=== PATIENT | female | born 1955 | race Caucasian/White ===

== ENCOUNTER 2019-01-01 20:54 | Emergency (ER) | payer OTHER ==
[2019-01-01] MEDS ORDERED: traMADol HCl 50 MG TAB ONE (21:14)
[2019-01-01 21:19] LABS: Bilirubin Negative (Negative); Blood, Urine Trace (Negative); Clarity Clear (Clear); Glucose, Urine (Dipstick) Negative (Negative); Leukocyte Negative (Negative); Nitrite Negative (Negative); Protein, Urine (Dipstick) Negative (Neg-Trace); Urobilinogen 0.2 mg/dL (Less than 2)
[2019-01-01 21:26] LABS: Bacteria/HPF Rare-Few HPF (None Seen); Squamous Epithelial 0-3 HPF (0-3); WBC/HPF 0-3 HPF (0-3)
[2019-01-01 21:43] LABS: #Basophils 0.1 thou/uL (0.0-0.2); #Eosinphils 0.1 thou/uL (0.0-0.7); #Lymphocytes 1.3 thou/uL (1.20-3.40); #Monocytes 0.5 thou/uL (0.11-0.59); %Basophils 1.1 % (0.0-1.0); %Eosinophils 0.9 % (0.0-10.0); %Lymphocytes 19.3 % (21.0-51.0); %Neutrophils 71.8 % (42.0-75.0); Hemoglobin 13.9 g/dL (12.0-16.0); Mean Corpuscular HGB CONC 34.4 g/dL (32.0-36.0); Mean Corpuscular Hemoglobin 30.2 pg (27.0-31.0); Mean Corpuscular Volume 87.7 fL (78.0-98.0); Mean Platelet Volume 5.9 fL (7.4-10.4); Platelet Count 200 thou/uL (130-400); RBC Distribution Width 10.7 % (11.5-14.5); Red Blood Cell (RBC) Count 4.62 mill/uL (4.20-5.40); White Blood Cell (WBC) Count 6.9 thou/uL (4.8-10.8)
[2019-01-01] MEDS ORDERED: Ketorolac Tromethamine 30 MG/ML VIAL ONE (21:44)
[2019-01-01 21:57] LABS: Anion Gap 14 mmol/L (10-20); BUN (Urea Nitrogen) 14 mg/dL (9.8-20.1); Calc. Creatinine Clearance 0 mL/min (70-130); Calcium 9.7 mg/dL (7.8-10.44); Carbon Dioxide 24 mmol/L (23-31); Chloride 108 mmol/L (98-107); Estimated GFR-MDRD 62; Glucose 135 mg/dL (80-115); Potassium 3.8 mmol/L (3.5-5.1); Sodium 142 mmol/L (136-145)
--- NOTE | 2019-01-01 22:36 | CT ---
CT ABDOMEN AND PELVIS WITH CONTRAST: 01/01/[address] of the abdomen and pelvis was performed for evaluation of diffuse abdominal pain. Axial sl ices were acquired after a bolus of IV contrast. The total volume was reduced slightly due to the bod y size. Axial and coronal reconstructions were done. The lung bases are clear. There is an area or two of slightly patchy density, but is more likely scar than acute infection. There are no effusions. The liver, spleen, gallbladder, adrenal glands, pancre as, kidneys and abdominal aorta all showed no acute findings. There is a significant amount of fluid-like food stuff in the stomach. There are some similar finding s in the colon, particularly the proximal transverse colon, and an abundance of stool in the colon el sewhere. There is no sign of armand obstruction. No jane-intestinal inflammatory change was seen. The small bowel was generally unremarkable. CT of the pelvis showed no pelvic masses, fluid collections, or inflammatory changes. The surrounding bony structures showed no acute change. IMPRESSION: Generally unremarkable exam except for some increased fluid-like food material in the stomach and por tions of the colon. Enteritis might be a consideration. POS: HOME
== END 2019-01-01 22:58 | disposition home or self-care (01) ==
LOC: BURERS 20:54
DX: Z02.9 Encounter for administrative examinations, unspecified (principal)
CPT/HCPCS: 74177; 80048; 81003; 81015; 85025; 94760; J1885